=== PATIENT | male | born 1955 | race African-American/Black ===

== ENCOUNTER 2016-10-04 15:44 | Emergency (ER) | payer MEDICARE, OTHER ==
[2016-10-04] MEDS ORDERED: ACETAMINOPHEN 325 MG TABLET PO ONE (18:26)
--- NOTE | 2016-10-04 18:33 | ED Physician Documentation ---
Abdominal Pain - HISTORIAN Historian: patient - HPI Stated Complaint: abdominal pain Chief Complaint: Abdominal Pain Additonal Information: Patient is a 61 yo M here for abdominal pain. States symptoms off and on for 1- 2 weeks. No pain at time of eval. Does have these same pains frequently but have never been checked out. He says symptoms overall for about 2-3 years. Diarrhea x5 today and also has n/v. Does not generally have n/v with pains. Is febrile on arrival. Did not think had fevers at home. Has been having normal BM prior to today. No urinary symptoms, no CP, no SOB. Is noted to have HTN on arrival, did not take BP meds this AM per his report. All other systems reviewed and negative except per HPI. Onset: days ago Duration: waxing, waning Context: denies: out of country travel, bad food Quality: dull - ROS CONST: no problems GI/: denies: constipation, black stools, bloody urine, bloody stools CVS/RESP: denies: palpitations, shortness of breath MS/SKIN/LYMPH: denies: joint pain, leg swelling, rash NEURO/PSYCH: none - SOCIAL HX Smoking History: quit greater than 1 year Alcohol Use: none Drug Use: none - FAMILY HX Family History: none - PAST HX Past History: other (HTN) Ischemic Bowel Risk Factors: none Other History: hyperlipidemia. denies: diabetes Type 2 Surgeries/Procedures: other (umbilical hernia) Home Medications: Ambulatory Orders Medication Instructions Recorded Lisinopril/Hydrochlorothiazide 1 each PO DAILY 10/04/16 [Zestoretic] Metformin HCl [Glucophage XR] 500 mg PO DAILY 10/04/16 Metoprolol Succinate [Metoprolol 100 mg PO DAILY 10/04/16 Succinate] Ranitidine HCl [Zantac] 150 mg PO BID 10/04/16 Tamsulosin HCl [Tamsulosin HCl] 0.4 mg PO DAILY 10/04/16 Allergies/Adverse Reactions: Allergies Allergy/AdvReac Type Severity Reaction Status Date / Time No Known Allergies Allergy Verified 10/04/16 18:07 - VITAL SIGNS Vital Signs: Vital Signs Temp Pulse Resp BP Pulse Ox 101.1 F H 118 H 20 189/117 94 10/04/16 16:30 10/04/16 16:30 10/04/16 16:30 10/04/16 16:30 10/04/16 16:30 - REVIEWED ASSESSMENTS Nursing Assessment Reviewed: Yes Vitals Reviewed: Yes ED Results Lab/Radiology - Lab Results Lab Results: Lab Results 10/04/16 10/04/16 18:40 18:40 WBC 10.40 K/ul K/ul (4.00-12.00) RBC 5.31 M/ul H M/ul (3.90-5.20) Hgb 16.4 g/dL g/dL (12.0-18.0) Hct 48.7 % % (37.0-53.0) MCV 91.7 fl fl (80.0-100.0) MCH 30.8 pg pg (28.0-34.0) MCHC 33.6 g/dL g/dL (30.0-36.0) RDW 14.4 % H % (11.3-14.3) Plt Count 340 K/mm3 K/mm3 (130-400) Neut % (Auto) 80.8 % H % (39.0-79.0) Lymph % (Auto) 9.9 % L % (16.0-50.0) Callahan % (Auto) 7.0 % % (0.0-11.0) Eos % (Auto) 1.3 % % (0.0-6.8) Baso % (Auto) 0.1 (0.0-1.5) Neut # 8.4 # k/uL H # k/uL (1.4-7.7) Lymph # 1.0 # k/uL # k/uL (0.6-4.0) Callahan # 0.7 # k/uL # k/uL (0.0-0.9) Eos # 0.1 # k/uL # k/uL (0.0-0.6) Baso # 0.0 # k/uL # k/uL (0.0-0.5) Reactive Lymphs % 1.0 % % (0.0-5.0) Reactive Lymphs # 0.1 # k/uL # k/uL (0.0-0.8) Sodium 139 mmol/L mmol/L (136-145) Potassium 3.9 mmol/L mmol/L (3.5-5.0) Chloride 104 mmol/L mmol/L (98-110) Carbon Dioxide 34 mmol/L H mmol/L (20-32) BUN 15 mg/dL mg/dL (10-26) Creatinine 1.3 mg/dL mg/dL (0.4-1.5) Estimated Creat Clear 109 Est GFR ( Amer) > 60 (60 - ) Est GFR (Non-Af Amer) > 60 (60 - ) Glucose 111 mg/dL H mg/dL (70-99) Calcium 9.1 mg/dL mg/dL (8.5-10.5) Total Bilirubin 0.9 mg/dL mg/dL (0.2-1.2) AST 20 U/L U/L (0-41) ALT 18 U/L U/L (0-45) Alkaline Phosphatase 71 U/L U/L (46-116) Total Protein 7.7 g/dL g/dL (6.0-8.5) Albumin 4.2 g/dL g/dL (3.0-5.5) Amylase 99 U/L U/L (20-104) - Orders Orders: ED Orders Category Date Time Status AMYLASE Routine Lab 10/04/16 18:40 Completed CBC/PLATELET/DIFF Stat Lab 10/04/16 18:40 Completed CHLAMYDIA & GONORRHOEAE Stat Lab 10/04/16 Ordered CMP [CMP] Routine Lab 10/04/16 18:40 Completed UA [URINALYSIS] Routine Lab 10/04/16 18:26 Ordered 0.9 % Sodium Chloride [Normal Saline] 1,000 ml Med 10/04/16 18:42 Discontinued IV .STK-MED 0.9 % Sodium Chloride [Normal Saline] 1,000 ml Med 10/04/16 18:44 Active IV Q1H Acetaminophen [Tylenol] Med 10/04/16 18:26 Discontinued 650 mg PO NOW ONE Abdominal Pain Physical Exam - Physical Exam General Appearance: no acute distress EENT: ENT inspection normal NECK: normal inspection, thyroid normal. No: lymphadenopathy RESPIRATORY: no resp distress, chest non-tender, breath sounds normal CVS: reg rate & rhythm, heart sounds normal, no murmur ABDOMEN: soft, no organomegaly, normal bowel sounds, no distension, non-tender MALE GENITAL: normal genitalia SKIN: warm/dry, normal color EXTREMITIES: non-tender, no evidence of injury, no edema NEURO: oriented X3 Vital Signs: Vital Signs Temp Pulse Resp BP Pulse Ox 101.1 F H 118 H 20 189/117 94 10/04/16 16:30 10/04/16 16:30 10/04/16 16:30 10/04/16 16:30 10/04/16 16:30 Discharge Clincal Impression: Abdominal pain Qualifiers: Abdominal location: generalized Qualified Code(s): R10.84 - Generalized abdominal pain Hypertension Qualifiers: Hypertension type: essential hypertension Qualified Code(s): I10 - Essential ( primary) hypertension Urinary tract infection Qualifiers: Urinary tract infection type: acute cystitis Hematuria presence: without hematuria Qualified Code(s): N30.00 - Acute cystitis without hematuria Referrals: Primary Doctor,Miroslava [Primary Care Provider] - 10/11/16 Home Medications: Ambulatory Orders Lisinopril/Hydrochlorothiazide [Zestoretic] 1 each PO DAILY 10/04/16 Metformin HCl [Glucophage XR] 500 mg PO DAILY 10/04/16 Metoprolol Succinate [Metoprolol Succinate] 100 mg PO DAILY 10/04/16 Ranitidine HCl [Zantac] 150 mg PO BID 10/04/16 Tamsulosin HCl [Tamsulosin HCl] 0.4 mg PO DAILY 10/04/16 Comments: found to have UTI, no discharge on exam. Sent for gc/chlamydia. Treat with cipro. Exam and labs reassuring. Condition: Good Disposition: 01 HOME, SELF-CARE Decision to Admit: NO Decision Time: 19:25
[2016-10-04] MEDS ORDERED: 0.9 % SODIUM CHLORIDE 1,000 ML IV ONE ×2 (18:42→18:44)
[2016-10-04 18:47] LABS: BASOPHILS % 0.1 (0.0-1.5); EOSINOPHILS % 1.3 % (0.0-6.8); MEAN CORPUSCULAR HEMOGLOBIN 30.8 pg (28.0-34.0); MONOCYTES # 0.7 # k/uL (0.0-0.9); NEUTROPHILS # 8.4 # k/uL (1.4-7.7)
[2016-10-04 19:11] LABS: eGFR (African) > 60; eGFR (Non-African) > 60
[2016-10-04] MEDS ORDERED: METOPROLOL TARTRATE 50 MG TABLET ONE (19:47)
[2016-10-04 19:59] VITALS: BP 179/98
[2016-10-04] MEDS ORDERED: METOPROLOL TARTRATE 50 MG TABLET PO ONE (19:59)
[2016-10-05 06:03] LABS: APPEARANCE,URINE CLOUDY (CLEAR); COLOR,URINE AMBER (YELLOW); OCCULT BLOOD,URINE 1+ (NEGATIVE); PH URINE 5.5 (5.0 - 8.0)
== END 2016-10-04 19:57 | disposition home or self-care (01) ==
LOC: ED 15:44
DX: R10.84 Generalized abdominal pain (principal); I10 Essential (primary) hypertension; N30.00 Acute cystitis without hematuria
CPT/HCPCS: 80053; 82150; 85025; J7030; 81002; 87086; 87491; 87591; 96360; 99283; S1016